=== PATIENT | female | born 1995 | race Caucasian/White ===

== ENCOUNTER 2016-07-16 12:32 | Emergency (ER) | payer OTHER ==
[2016-07-16] MEDS ORDERED: ONDANSETRON ODT 4 MG TABLET TL STA (13:07)
[2016-07-16] MEDS ORDERED: ONDANSETRON ODT 4 MG TABLET ONE (13:10)
== END 2016-07-16 13:15 | disposition home or self-care (01) ==
DX: K52.9 Noninfective gastroenteritis and colitis, unspecified (principal)
CPT/HCPCS: 81001; 81025; 99283; Q0162